=== PATIENT | female | born 1970 | race Caucasian/White ===

== ENCOUNTER 2023-09-05 19:52 | Emergency (ER) | payer OTHER ==
[~2023-09-05] VITALS: Ht 154.9 cm; Wt 81.6 kg
[2023-09-05 20:23] VITALS: BP 146/77; PULSE 77; RESP 16; TEMP 98.1; O2SAT 98
[2023-09-05] MEDS ORDERED: KETOROLAC 30 MG/ML VIAL IM ONE (21:25)
[2023-09-05] MEDS ORDERED: NAPR-1704 PO (21:39)
== END 2023-09-05 21:47 | disposition home or self-care (01) ==
LOC: MED 19:52
DX: S90.32XA Contusion of left foot, initial encounter (principal); Z79.899 Other long term (current) drug therapy; W01.198A Fall on same level from slipping, tripping and stumbling with subsequent striking against other object, initial encounter; Y93.89 Activity, other specified; Y92.89 Other specified places as the place of occurrence of the external cause; Y99.8 Other external cause status
CPT/HCPCS: 73630; 96372; 99283; J1885